=== PATIENT | female | born 1955 | race Caucasian/White ===

== ENCOUNTER 2023-12-05 18:35 | Inpatient (IN) | payer OTHER, MEDICAID ==
[~2023-12-05] VITALS: Ht 165.1 cm; Wt 112.5 kg
[2023-12-05 19:11] VITALS: BP 127/85; PULSE 99; RESP 20; TEMP 98.8; O2SAT 99
[2023-12-05] MEDS ORDERED: cefTRIAXone 1,000 MG VIAL ONE ×2 (19:44→19:58)
[2023-12-05] MEDS: cefTRIAXone 1,000 MG in DEXT 5% MINI-BAG PLUS 50 ML IV ONE (20:09)
[2023-12-05] MEDS: NACL 0.9% 1,000 ML IV SCH (20:10)
[2023-12-05 20:12] LABS: BASOPHILS # (AUTO) 0.1 K/uL (0.00-0.22); BASOPHILS % (AUTO) 0.7 % (0.0-2.0); EOSINOPHILS # (AUTO) 0.1 K/uL (0-0.4); EOSINOPHILS % (AUTO) 0.8 % (0.0-4.0); HEMATOCRIT 39.7 % (36-48); HEMOGLOBIN 13.6 g/dL (12.0-16.0); LYMPHOCYTES # (AUTO) 2.1 K/uL (2.5-16.5); LYMPHOCYTES % (AUTO) 26.3 % (20.5-51.1); MEAN CORPUSCULAR HEMOGLOBIN 32 pg (27-31); MEAN CORPUSCULAR HGB CONC 34 g/dL (33-37); MEAN CORPUSCULAR VOLUME 92.2 fL (80-94); MONOCYTES # (AUTO) 0.8 K/uL (0.8-1.0); MONOCYTES % (AUTO) 9.6 % (1.7-9.3); NEUTROPHILS # (AUTO) 5.1 K/uL (1.8-7.7); NEUTROPHILS % (AUTO) 62.6 % (42.2-75.2); PLATELET COUNT (AUTO) 300 K/uL (140-450); RED BLOOD CELL COUNT(AUTO) 4.31 MIL/uL (4.20-5.40); RED CELL DISTRIBUTION WIDTH 13.6 % (11.6-13.7); WHITE BLOOD COUNT (AUTO) 8.1 K/uL (4.8-10.8)
[2023-12-05 20:16] LABS: APPEARANCE,URINE CLEAR (CLEAR); BILIRUBIN,URINE 1+ (NEGATIVE); BLOOD, URINE TRACE-I (NEGATIVE); COLOR,URINE YELLOW (YELLOW); LEUKOCYTE ESTERASE ,URINE NEGATIVE (NEGATIVE); NITRITE, URINE NEGATIVE (NEGATIVE); PROTEIN,URINE NEGATIVE (NEGATIVE); UGLUCOSE NEGATIVE (NEGATIVE); UROBILINOGEN,URINE 0.2 EU/dL (0.2 - 1)
[2023-12-05 20:24] LABS: CALCIUM 9.7 mg/dL (8.5-10.1); CARBON DIOXIDE 24.1 mmol/L (21-32); CREATININE 1.2 mg/dL (0.6-1.3); POTASSIUM 3.1 mmol/L (3.5-5.1)
[2023-12-05 20:32] LABS: BACTERIA,URINE 10-30 (MOD) /HPF (None Seen); CALCIUM OXALATE CRYSTALS,UR 0-10 /HPF (None Seen); ICTOTEST NEGATIVE (NEGATIVE); RBC,URINE 0-5 /HPF (0-5); SQUAMOUS EPITHELIAL CELL,UR 4-10 (MOD) /LPF (0-3 (FEW)); WBC,URINE 0-5 /HPF (0-5)
[2023-12-05 20:34] LABS: ALANINE AMINOTRANSFERASE 27 U/L (12-78); ALBUMIN 4.1 g/dL (3.4-5.0); ALKALINE PHOSPHATASE 114 U/L (50-136); ASPARTATE AMINOTRANSFERASE 21 U/L (15-37); BILIRUBIN,DIRECT 0.1 mg/dL (0.0-0.3); LACTIC ACID 0.8 mmol/L (0.4-2.0); TOTAL BILIRUBIN 0.4 mg/dL (0.0-1.0); TOTAL PROTEIN, SERUM 7.2 g/dL (6.4-8.2)
[2023-12-05 20:37] LABS: URIC ACID CRYSTALS,URINE 0-10 /HPF (None Seen)
[2023-12-05 20:38] LABS: OTHER CRYSTALS,URINE CALCIUM CARBONATE 1+ /HPF (None Seen)
[2023-12-05 20:57] LABS: FLU A ANTIGEN negative (NEGATIVE); FLU B ANTIGEN NEGATIVE (NEGATIVE)
[2023-12-05] MEDS ORDERED: MONT-72 PO (21:08)
[2023-12-05] MEDS ORDERED: ZONI100C97 PO (21:08)
[2023-12-05] MEDS ORDERED: DULO20EC PO (21:08)
[2023-12-05] MEDS ORDERED: FAMO-90 PO (21:08)
[2023-12-05] MEDS ORDERED: GABA300C PO (21:08)
[2023-12-05] MEDS ORDERED: ATOR40TA PO (21:08)
[2023-12-06 06:37] LABS: BASOPHILS % (AUTO) 0.7 % (0.0-2.0); EOSINOPHILS # (AUTO) 0.1 K/uL (0-0.4); EOSINOPHILS % (AUTO) 1.5 % (0.0-4.0); HEMATOCRIT 37.9 % (36-48); HEMOGLOBIN 12.8 g/dL (12.0-16.0); LYMPHOCYTES # (AUTO) 1.8 K/uL (2.5-16.5); LYMPHOCYTES % (AUTO) 31.1 % (20.5-51.1); MEAN CORPUSCULAR HEMOGLOBIN 31 pg (27-31); MEAN CORPUSCULAR HGB CONC 34 g/dL (33-37); MONOCYTES # (AUTO) 0.6 K/uL (0.8-1.0); MONOCYTES % (AUTO) 9.8 % (1.7-9.3); NEUTROPHILS # (AUTO) 3.3 K/uL (1.8-7.7); NEUTROPHILS % (AUTO) 56.9 % (42.2-75.2); PLATELET COUNT (AUTO) 246 K/uL (140-450); RED BLOOD CELL COUNT(AUTO) 4.12 MIL/uL (4.20-5.40); RED CELL DISTRIBUTION WIDTH 13.5 % (11.6-13.7); WHITE BLOOD COUNT (AUTO) 5.9 K/uL (4.8-10.8)
[2023-12-06 07:01] LABS: ANION GAP 13.4 (8-16); CALCIUM 9.1 mg/dL (8.5-10.1); CARBON DIOXIDE 22.9 mmol/L (21-32); CREATININE 0.9 mg/dL (0.6-1.3); POTASSIUM 3.3 mmol/L (3.5-5.1)
[2023-12-06 09:30] VITALS: PULSE 75
[2023-12-06 12:00] VITALS: BP 116/63; PULSE 72; PULSE 74; RESP 18; TEMP 97.3; O2SAT 99
[2023-12-06] MEDS ORDERED: NACL 0.9% 1,000 ML IV SCH (14:45)
[2023-12-06] MEDS ORDERED: MAG SULF 2000 MG/WATER PREMIX 50 ML IV PRN (15:25)
[2023-12-06] MEDS ORDERED: MECLIZINE 25 MG TAB PO PRN (15:25)
[2023-12-06] MEDS ORDERED: ONDANSETRON 4 MG/2 ML VIAL IVP PRN (15:25)
[2023-12-06] MEDS: POTASSIUM CHLORIDE 10 MEQ TABER PO SCH (15:32)
[2023-12-06] MEDS: KCL 20 MEQ IN 100 mL PREMIX 200 ML IV SCH (15:34)
[2023-12-06] MEDS: NACL 0.9% 1,000 ML IV SCH (15:45)
[2023-12-06 16:00] VITALS: BP 132/71; PULSE 66; PULSE 71; RESP 18; TEMP 97.5; O2SAT 100
[2023-12-06 16:24] LABS: BASOPHILS # (AUTO) 0.1 K/uL (0.00-0.22); EOSINOPHILS % (AUTO) 0.8 % (0.0-4.0); HEMATOCRIT 39.5 % (36-48); HEMOGLOBIN 13.4 g/dL (12.0-16.0); LYMPHOCYTES # (AUTO) 1.8 K/uL (2.5-16.5); LYMPHOCYTES % (AUTO) 32.5 % (20.5-51.1); MEAN CORPUSCULAR HEMOGLOBIN 31 pg (27-31); MEAN CORPUSCULAR HGB CONC 34 g/dL (33-37); MEAN CORPUSCULAR VOLUME 92.2 fL (80-94); MONOCYTES # (AUTO) 0.6 K/uL (0.8-1.0); MONOCYTES % (AUTO) 10.7 % (1.7-9.3); NEUTROPHILS # (AUTO) 3.1 K/uL (1.8-7.7); PLATELET COUNT (AUTO) 286 K/uL (140-450); RED BLOOD CELL COUNT(AUTO) 4.28 MIL/uL (4.20-5.40); RED CELL DISTRIBUTION WIDTH 13.6 % (11.6-13.7); WHITE BLOOD COUNT (AUTO) 5.6 K/uL (4.8-10.8)
[2023-12-06 16:54] LABS: ANION GAP 15.1 (8-16); CARBON DIOXIDE 23.2 mmol/L (21-32); CREATININE 0.8 mg/dL (0.6-1.3); POTASSIUM 3.3 mmol/L (3.5-5.1)
[2023-12-06 16:57] LABS: PARTIAL THROMBOPLASTIN TIME 27.6 secs (22-35.6); PROTHROMBIN TIME 10.5 secs (10.8-13.4)
[2023-12-06 17:02] LABS: LACTIC ACID 1.4 mmol/L (0.4-2.0)
[2023-12-06 17:15] LABS: CHOL/HDL RATIO 2.1 (1-4.5); FREE T4 (FREE THYROXINE) 1.11 ng/dL (0.76-1.46); PHOSPHORUS 3.7 mg/dL (2.5-4.9); THYROID STIMULATING HORMONE 1.71 uIU/mL (0.34-3.74)
[2023-12-06] MEDS: KCL 20 MEQ IN 100 mL PREMIX 100 ML IV SCH (17:55)
[2023-12-06 20:00] VITALS: BP 137/60; PULSE 72; PULSE 76; RESP 20; TEMP 97; O2SAT 100
[2023-12-06] MEDS: GABAPENTIN 300 MG CAP PO SCH (20:35)
[2023-12-06] MEDS: DOCUSATE SODIUM 100 MG GELCAP PO SCH (20:36)
[2023-12-06] MEDS: FAMOTIDINE 20 MG TAB PO SCH (20:36)
[2023-12-06] MEDS: MONTELUKAST SODIUM 10 MG TAB PO SCH (20:36)
[2023-12-06] MEDS: ZONISAMIDE 100 MG CAP PO SCH (20:37)
[2023-12-06] MEDS: ATORVASTATIN 20 MG TAB PO SCH (20:37)
[2023-12-06] MEDS ORDERED: DULOXETINE HCL PO SCH (21:00)
[2023-12-06 21:53] LABS: AMPHETAMINE, URINE NEGATIVE ng/ml (NEG <=1000); BARBITURATE, URINE NEGATIVE ng/ml (NEG <=200); BENZODIAZEPINE, URINE NEGATIVE ng/mL (NEG <=200); CANNABINOID, URINE NEGATIVE ng/mL (NEG <=50); COCAINE, URINE NEGATIVE ng/mL (NEG <=300); OPIATE, URINE POSITIVE ng/mL (NEG <=2000); PHENCYCLIDINE SCREEN,URINE NEGATIVE ng/mL (NEG <=25)
[2023-12-07] VITALS (7 sets, daily range): BP systolic 122–145; BP diastolic 67–82; PULSE 65–82; RESP 17–18; TEMP 96.7–98.9; O2SAT 92–100
[2023-12-07 07:24] LABS: BASOPHILS % (AUTO) 0.7 % (0.0-2.0); EOSINOPHILS # (AUTO) 0.1 K/uL (0-0.4); EOSINOPHILS % (AUTO) 1.5 % (0.0-4.0); HEMATOCRIT 37.5 % (36-48); HEMOGLOBIN 12.7 g/dL (12.0-16.0); LYMPHOCYTES # (AUTO) 1.6 K/uL (2.5-16.5); LYMPHOCYTES % (AUTO) 31.8 % (20.5-51.1); MEAN CORPUSCULAR HEMOGLOBIN 31 pg (27-31); MEAN CORPUSCULAR HGB CONC 34 g/dL (33-37); MONOCYTES # (AUTO) 0.5 K/uL (0.8-1.0); MONOCYTES % (AUTO) 10.5 % (1.7-9.3); NEUTROPHILS # (AUTO) 2.7 K/uL (1.8-7.7); NEUTROPHILS % (AUTO) 55.5 % (42.2-75.2); PLATELET COUNT (AUTO) 231 K/uL (140-450); RED BLOOD CELL COUNT(AUTO) 4.07 MIL/uL (4.20-5.40); RED CELL DISTRIBUTION WIDTH 13.7 % (11.6-13.7); WHITE BLOOD COUNT (AUTO) 4.9 K/uL (4.8-10.8)
[2023-12-07 07:40] LABS: MAGNESIUM 1.9 mg/dL (1.8-2.4); PHOSPHORUS 3.4 mg/dL (2.5-4.9)
[2023-12-07 07:42] LABS: ANION GAP 14.2 (8-16); CALCIUM 8.9 mg/dL (8.5-10.1); CARBON DIOXIDE 21.5 mmol/L (21-32); CREATININE 0.9 mg/dL (0.6-1.3); POTASSIUM 3.7 mmol/L (3.5-5.1)
[2023-12-07] MEDS: PANTOPRAZOLE 40 MG INJ VIAL IVP SCH (08:14)
[2023-12-07] MEDS: ONDANSETRON 4 MG TAB PO PRN (16:48)
[2023-12-07] MEDS: ACETAMINOPHEN 325 MG TAB PO PRN (19:46)
[2023-12-08] VITALS: BP 126/71; PULSE 75; PULSE 82; RESP 18; TEMP 98; O2SAT 95
[2023-12-08] MEDS: HYDROcodone/APAP 7.5/325 MG 1 TAB PO PRN (00:43)
[2023-12-08 04:00] VITALS: BP 127/73; PULSE 61; PULSE 76; RESP 17; TEMP 97.1; O2SAT 96
[2023-12-08 07:20] LABS: BASOPHILS # (AUTO) 0.1 K/uL (0.00-0.22); BASOPHILS % (AUTO) 1.1 % (0.0-2.0); EOSINOPHILS # (AUTO) 0.1 K/uL (0-0.4); EOSINOPHILS % (AUTO) 1.8 % (0.0-4.0); HEMATOCRIT 34.6 % (36-48); LYMPHOCYTES # (AUTO) 1.6 K/uL (2.5-16.5); LYMPHOCYTES % (AUTO) 31.5 % (20.5-51.1); MEAN CORPUSCULAR HEMOGLOBIN 32 pg (27-31); MEAN CORPUSCULAR HGB CONC 35 g/dL (33-37); MEAN CORPUSCULAR VOLUME 92.3 fL (80-94); MONOCYTES # (AUTO) 0.5 K/uL (0.8-1.0); MONOCYTES % (AUTO) 10.1 % (1.7-9.3); NEUTROPHILS # (AUTO) 2.8 K/uL (1.8-7.7); NEUTROPHILS % (AUTO) 55.5 % (42.2-75.2); PLATELET COUNT (AUTO) 229 K/uL (140-450); RED BLOOD CELL COUNT(AUTO) 3.75 MIL/uL (4.20-5.40); RED CELL DISTRIBUTION WIDTH 13.3 % (11.6-13.7); WHITE BLOOD COUNT (AUTO) 5.1 K/uL (4.8-10.8)
[2023-12-08 07:23] LABS: ANION GAP 14.5 (8-16); CARBON DIOXIDE 21.6 mmol/L (21-32); CREATININE 0.9 mg/dL (0.6-1.3); POTASSIUM 3.1 mmol/L (3.5-5.1)
[2023-12-08 07:46] LABS: MAGNESIUM 1.9 mg/dL (1.8-2.4); PHOSPHORUS 3.8 mg/dL (2.5-4.9)
[2023-12-08 08:00] VITALS: BP_DIAS 82; PULSE 59
[2023-12-08] MEDS: POTASSIUM CHLORIDE 10 MEQ TABER PO PRN (11:50)
[2023-12-08 12:00] VITALS: BP 106/65; PULSE 67; RESP 18; TEMP 97.4; O2SAT 98
== END 2023-12-08 15:55 | DRG 640 ==
LOC: MED 18:35 → MTU 21:08
DX: E86.0 Dehydration (principal); G93.41 Metabolic encephalopathy; E87.6 Hypokalemia; J30.9 Allergic rhinitis, unspecified; F32.9 Major depressive disorder, single episode, unspecified; Z20.822 Contact with and (suspected) exposure to COVID-19; K21.9 Gastro-esophageal reflux disease without esophagitis; E78.5 Hyperlipidemia, unspecified; M25.562 Pain in left knee; Z79.899 Other long term (current) drug therapy; E87.8 Other disorders of electrolyte and fluid balance, not elsewhere classified
CPT/HCPCS: 36415; 71045; 73564; 80048; 80076; 80305; 81001; 82140; 82150; 83036; 83605; 83690; 83735; 83880; 84100; 84439; 84443; 84484; 85025; 85610; 85730; 87040; 87081; 87086; 93005; 93880; 93925; 93970; 96365; 97116; 97163-GP; 99285; C9113; J0696; J1644; J3480; J7060; Q0092; Q0162